=== PATIENT | male | born 1975 | race Caucasian/White ===

== ENCOUNTER 2018-01-11 10:06 | Emergency (ER) | payer OTHER ==
[~2018-01-11] VITALS: Ht 157.5 cm; Wt 71.8 kg
[2018-01-11 10:08] VITALS: Ht 157.5 cm; Wt 71.8 kg
[2018-01-11] MEDS ORDERED: PAXIL10 MG PO (10:10)
[2018-01-11] MEDS ORDERED: KLONOPIN1 MG PO (10:11)
[2018-01-11] MEDS ORDERED: XANAX1 MG PO (10:11)
[2018-01-11 11:10] VITALS: BP 122/092
== END 2018-01-11 11:12 | disposition home or self-care (01) ==
LOC: D.ER 10:06
DX: F41.9 Anxiety disorder, unspecified (principal); Z86.59 Personal history of other mental and behavioral disorders; F17.200 Nicotine dependence, unspecified, uncomplicated

== ENCOUNTER 2018-03-04 12:41 | Emergency (ER) | payer OTHER ==
[~2018-03-04] VITALS: Ht 157.5 cm; Wt 63.6 kg
[~2018-03-04 12:41] MED LIST: KLONOPIN1 MG PO; PAXIL10 MG PO; XANAX1 MG PO
[2018-03-04 12:44] VITALS: Ht 157.5 cm; Wt 63.6 kg
[2018-03-04] MEDS ORDERED: PROZAC20 MG PO (12:45)
[2018-03-04] MEDS ORDERED: TRAZODONE HCL150 MG PO (12:46)
[2018-03-04] MEDS ORDERED: PROTONIX20 MG PO (12:46)
[2018-03-04] MEDS ORDERED: CYMBALTA20 MG PO (12:46)
[2018-03-04 13:18] LABS: APPEARANCE CLEAR (CLEAR); BILIRUBIN NEGATIVE (NEGATIVE); COLOR YELLOW (YELLOW); GLUCOSE NEGATIVE (NEGATIVE); KETONE LARGE mg/dL (NEGATIVE); NITRITE NEGATIVE (NEGATIVE); PROTEIN NEGATIVE (NEGATIVE); UROBILINOGEN NORMAL (NORMAL)
[2018-03-04 14:11] LABS: BASOPHILS 0.5 % (0-2); EOSINOPHILS 5.9 % (0-7); HEMATOCRIT 40.9 % (42.0-54.0); HEMOGLOBIN 13.7 g/dL (13.5-17.5); IMMATURE GRANULOCYTES 0.1 % (0-5); LYMPHOCYTES 25.7 % (15-50); MCH 30.6 pg (26.0-34.0); MCHC 33.5 g/dL (31.0-37.0); MCV 91.3 fL (80.0-100.0); MEAN PLATELET VOLUME 10.9 fL (7.4-10.4); MONOCYTES 13.2 % (2-11); NEUTROPHILS 54.6 % (40-80); PLATELET COUNT 217 10x3/uL (130-400); RBC 4.48 10x6/uL (4.20-6.10); RDW 13.7 % (11.5-14.5); WBC 8.3 10x3/uL (4.8-10.8)
[2018-03-04 14:18] LABS: ALBUMIN 3.1 g/dL (3.4-5.0); ALKALINE PHOSPHATASE 38 U/L (46-116); ALT (SGPT) 34 U/L (10-68); AMYLASE - SERUM 31 U/L (25-115); BILIRUBIN - TOTAL 0.55 mg/dL (0.2-1.3); CALC OSMOLALITY 278 mosm/kg (275-300); CALCIUM 7.6 mg/dL (8.5-10.1); CARBON DIOXIDE 25.4 mmol/L (21.0-32.0); CHLORIDE - SERUM 106 mmol/L (98-107); CREATININE - SERUM 0.9 mg/dL (0.6-1.3); GLUCOSE 91 mg/dL (74-106); LIPASE 105 U/L (73-393); POTASSIUM - SERUM 3.6 mmol/L (3.5-5.1); PROTEIN - SERUM 5.7 g/dL (6.4-8.2); SODIUM 138 mmol/L (136-145); UREA NITROGEN 22 mg/dL (7-18); eGFR NON AFRICAN AMERICAN > 90 mL/min (90-120)
[2018-03-04 14:33] LABS: TROPONIN-I < 0.017 ng/mL (0.000-0.060)
[2018-03-04 14:34] LABS: CREATINE KINASE 1521 UL (21-232)
[2018-03-04 15:01] LABS: UDS - AMPHET POSITIVE QUAL (NEGATIVE); UDS - BARB NEGATIVE QUAL (NEGATIVE); UDS - BENZO NEGATIVE QUAL (NEGATIVE); UDS - COCAINE NEGATIVE QUAL (NEGATIVE); UDS - OPIATE POSITIVE QUAL (NEGATIVE); UDS - PCP NEGATIVE QUAL (NEGATIVE); UDS - THC POSITIVE QUAL (NEGATIVE)
[2018-03-04 16:07] VITALS: BP 114/68
== END 2018-03-04 16:08 | disposition home or self-care (01) ==
LOC: D.ER 12:41
PROVIDERS: Family Medicine
DX: R10.11 Right upper quadrant pain (principal); R74.8 Abnormal levels of other serum enzymes; F15.10 Other stimulant abuse, uncomplicated